=== PATIENT | female | born 1995 | race American Indian/Alaskan Native ===

== ENCOUNTER 2020-07-16 14:47 | Emergency (ER) | payer SELFPAY ==
[2020-07-16 17:15] VITALS: BP 105/69
--- NOTE | 2020-07-16 17:54 | Emergency Department Report ---
ED Anxiety HPI - General Chief Complaint: Anxiety Stated Complaint: SHAKING/SMALL SEIZURES Time Seen by Provider: 07/16/20 17:30 Source: patient Mode of arrival: Ambulatory - History of Present Illness Initial Comments: This is a 25-year-old female. She is well-appearing. she states that around 3 PM today she started feeling anxious numbing to her fingers and toes. . Patient reports that she is an "over thinker". States she worries a lot and if there something small she usually thinks about it and it becomes big. She denies any suicidal ideations. States that she may be overwhelmed with Thanksgiving. She is currently not taking anything for anxiety and currently not talking to a counselor about her anxiety. She denies any cough cold or flu no chest pain or shortness of breath no other complaints. Patient states since sitting in the department she has been able to calm down and relax and she feels much better with no current symptoms MD Complaint: anxiety -: Gradual, hour(s) (2) Symptoms: extremity numbness, muscle cramps Previous History of Same: Yes Severity: mild Quality: intermittant Provoking factors: emotional stress Improves With: rest Worsens With: nothing Associated symptoms: denies: chest pain, shortness of breath, confusion, cough, fever/chills, headaches, malaise, nausea/vomiting, rash, seizure, syncope, weakness - Related Data Allergies/Adverse Reactions: Allergies Allergy/AdvReac Type Severity Reaction Status Date / Time No Known Allergies Allergy Unverified 07/16/20 15:56 ED Review of Systems ROS: Stated complaint: SHAKING/SMALL SEIZURES Other details as noted in HPI Comment: All other systems reviewed and negative Constitutional: denies: chills, fever, other Eyes: denies: eye pain ENT: denies: ear pain, throat pain Respiratory: denies: cough, shortness of breath, SOB with exertion Cardiovascular: denies: palpitations Endocrine: denies: excessive sweating, flushing, intolerance to cold, intolerance to heat Gastrointestinal: denies: abdominal pain, nausea, vomiting Musculoskeletal: denies: back pain Skin: denies: rash, change in color, change in hair/nails Psychiatric: anxiety. denies: depression, auditory hallucinations, visual hallucinations, homicidal thoughts, suicidal thoughts ED Past Medical Hx - Past Medical History Previous Medical History?: Yes Hx Psychiatric Treatment: Yes (ANXIETY,) - Social History Smoking Status: Never Smoker Substance Use Type: None ED Physical Exam - General Limitations: No Limitations General appearance: alert, in no apparent distress - Head Head exam: Present: atraumatic, normal inspection - Eye Eye exam: Present: normal appearance - ENT ENT exam: Present: normal exam, normal orophraynx, mucous membranes moist - Neck Neck exam: Present: normal inspection. Absent: tenderness, lymphadenopathy - Respiratory Respiratory exam: Present: normal lung sounds bilaterally. Absent: chest wall tenderness - Cardiovascular Cardiovascular Exam: Present: regular rate, normal rhythm, normal heart sounds - GI/Abdominal GI/Abdominal exam: Absent: soft, tenderness, guarding - Rectal Rectal exam: Absent: deferred - Extremities Exam Extremities exam: Present: normal inspection, normal capillary refill - Back Exam Back exam: Present: normal inspection - Neurological Exam Neurological exam: Present: alert, oriented X3 - Psychiatric Psychiatric exam: Present: normal affect, normal mood. Absent: depressed, agitated, homicidal ideation, suicidal ideation - Skin Skin exam: Present: warm, dry, intact, normal color. Absent: rash ED Course Vital Signs 07/16/20 07/16/20 07/16/20 15:53 17:13 17:14 Temperature 98 F 98.5 F 98.2 F Pulse Rate 110 H 89 89 Respiratory 18 16 16 Rate Blood Pressure 109/66 105/69 Blood Pressure 105/69 [Left] O2 Sat by Pulse 98 99 100 Oximetry ED Medical Decision Making - Differential Diagnosis anxiety stress reaction Critical Care Time: No Critical care attestation.: If time is entered above; I have spent that time in minutes in the direct care of this critically ill patient, excluding procedure time. ED Disposition Clinical Impression: Anxiety Disposition: DC-01 TO HOME OR SELFCARE Is pt being admited?: No Does the pt Need Aspirin: No Condition: Stable Instructions: Information About Deep Brain Stimulation, Managing Anxiety, Teen Additional Instructions: Please follow[facility]up with [facility] or with your primary care doctor or with Dr. Perez/ Get plenty of rest. Practice deep breathing exercises to calm down. In extreme anxiety you can breathe in a brown paper bag. For 1 to 2 minutes to relieve numbness . Referrals: PRIMARY CAREMD [Primary Care Provider] - 3-5 Days JODIE PEREZ MD [Staff Physician] - 3-5 Days [facility] [Outside] - 3-5 Days Time of Disposition: 18:02
== END 2020-07-16 18:09 | disposition home or self-care (01) ==
LOC: ED 14:47
DX: F41.9 Anxiety disorder, unspecified (principal)
CPT/HCPCS: 99282